=== PATIENT | female | born 1985 | race African-American/Black ===

== ENCOUNTER 2016-12-08 10:59 | Emergency (ER) | payer MEDICAID ==
[~2016-12-08] VITALS: Ht 167.6 cm; Wt 69.0 kg
[2016-12-08] MEDS ORDERED: KETOROLAC 60MG/2ML VIAL IM ONE (14:00)
[2016-12-08] MEDS ORDERED: IBUPROFEN 600MG TABLET PO ONE (14:30)
[2016-12-08 14:46] VITALS: BP 111/77
== END 2016-12-08 14:42 | disposition home or self-care (01) ==
LOC: ER 10:59
DX: L03.012 Cellulitis of left finger (principal); F17.200 Nicotine dependence, unspecified, uncomplicated
CPT/HCPCS: 81025; 99283

== ENCOUNTER 2016-12-10 11:32 | Emergency (ER) | payer MEDICAID ==
[~2016-12-10] VITALS: Ht 167.6 cm; Wt 64.0 kg
[2016-12-10 11:39] VITALS: BP 121/80
== END 2016-12-10 12:48 | disposition home or self-care (01) ==
LOC: ER 11:32
DX: L03.012 Cellulitis of left finger (principal)
CPT/HCPCS: 99281